=== PATIENT | female | born 1945 | race Caucasian/White ===

== ENCOUNTER 2020-11-09 10:13 | Emergency (ER) | payer MEDICARE, BC ==
--- NOTE | 2020-11-09 11:01 | EDM.PDOC ---
ED HPI GENERAL MEDICAL PROBLEM - General Chief Complaint: Gastrointestinal Problem Stated Complaint: POSSIBLE ULCER-PAIN IN ABDOMIN AND BACK Time Seen by Provider: 11/09/20 10:45 Source of Information: Reports: Patient, Family History Limitations: Reports: No Limitations - History of Present Illness INITIAL COMMENTS - FREE TEXT/NARRATIVE: 75-year-old female presents with persistent right flank pain radiating through to the upper abdomen for the past 12 hours. She tried some Rolaids but it did not help, she had difficulty getting comfortable last night. It seemed to be worsening so she came in to be seen but since she has been in the emergency room and sitting still looks much better. Mild shortness of breath with activity but nothing significantly different than her baseline. No fevers or chills, no cough, no diarrhea or dark stools. She had a "bleeding ulcer" years ago and it felt similar. Onset: Gradual (Gradual onset last evening prior to going to bed) Duration: Hour(s): (12 hours) Location: Reports: Abdomen, Back Improves with: Reports: None Worsens with: Reports: None Associated Symptoms: Reports: Malaise. 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) (Tried some Rolaids or some type of antacid without effect) - Related Data Allergies Allergy/AdvReac Type Severity Reaction Status Date / Time meperidine [From Demerol] Allergy Nausea and Verified 11/09/20 10:36 Vomiting Home Meds: Home Meds Ezetimibe [Zetia] 10 mg PO DAILY 11/09/20 [History] Levothyroxine Sodium [Synthroid] 100 mcg PO DAILY 11/09/20 [History] ursodioL [Ursodiol] 300 mg PO TID 11/09/20 [History] Past Medical History Cardiovascular History: Reports: High Cholesterol Other Genitourinary History: perf ulcers 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 Denies: Fever, Chills HEENT: Reports: No Symptoms Respiratory: Denies: Shortness of Breath Cardiovascular: Denies: Chest Pain GI/Abdominal: Reports: Abdominal Pain. Denies: Constipation, Diarrhea, Nausea, Vomiting : Reports: Flank Pain (Some pain in the right flank radiating through to the epigastric area of the abdomen) Neurological: Reports: No Symptoms Psychiatric: Reports: No Symptoms ED EXAM, GENERAL - Physical Exam Exam: See Below Exam Limited By: No Limitations General Appearance: Alert, No Apparent Distress Eye Exam: Bilateral Eye: Normal Inspection Head: Atraumatic Respiratory/Chest: No Respiratory Distress, Lungs Clear Cardiovascular: Regular Rate, Rhythm. No: Extra Beats GI/Abdominal: Soft, Non-Tender, Other (I really cannot reproduce pain with palpation of the abdomen) Back Exam: Paraspinal Tenderness (She is tender to palpation just under the right scapula, the pain feels similar but "deeper".) Extremities: Normal Inspection. No: Pedal Edema Neurological: Alert, Oriented Psychiatric: Normal Affect, Normal Mood Skin Exam: Warm, Dry Course - Vital Signs Last Recorded V/S: Last Vital Signs Temp 98.3 F 11/09/20 10:49 Pulse 54 L 11/09/20 10:49 Resp BP 136/66 11/09/20 10:49 Pulse Ox 95 11/09/20 10:49 - Orders/Labs/Meds Labs: Laboratory Tests 11/09/20 11/09/20 11/09/20 Range/Units 10:56 10:56 11:38 WBC 14.0 H (4.5-11.0) K/uL RBC 4.23 (3.30-5.50) M/uL Hgb 13.2 (12.0-15.0) g/dL Hct 40.0 (36.0-48.0) % MCV 95 (80-98) fL MCH 31 (27-31) pg MCHC 33 (32-36) % Plt Count 413 H (150-400) K/uL Neut % (Auto) 86.9 H (36-66) % Lymph % (Auto) 7.7 L (24-44) % Mck[place] % (Auto) 5.1 (2-6) % Eos % (Auto) 0.1 L (2-4) % Baso % (Auto) 0.2 (0-1) % Sodium 141 (140-148) mmol/L Potassium 4.6 (3.6-5.2) mmol/L Chloride 104 (100-108) mmol/L Carbon Dioxide 28 (21-32) mmol/L Anion Gap 9.2 (5.0-14.0) mmol/L BUN 11 (7-18) mg/dL Creatinine 1.1 H (0.6-1.0) mg/dL Est Cr Clr Drug Dosing 37.12 mL/min Estimated GFR (MDRD) 49 L (>60) Glucose 114 H (74-106) mg/dL Calcium 9.5 (8.5-10.1) mg/dL Total Bilirubin 0.5 (0.2-1.0) mg/dL AST 25 (15-37) U/L ALT 25 (12-78) U/L Alkaline Phosphatase 79 (46-116) U/L Troponin I < 0.017 (0.000-0.056) ng/mL Total Protein 7.1 (6.4-8.2) g/dL Albumin 3.3 L (3.4-5.0) g/dL Globulin 3.8 H (2.3-3.5) g/dL Albumin/Globulin Ratio 0.9 L (1.2-2.2) Lipase 137 (73-393) U/L Urine Color Yellow (YELLOW) Urine Appearance Clear (CLEAR) Urine pH 6.5 (5.0-8.0) Ur Specific [place] 1.025 (1.008-1.030) Urine Protein Negative (NEGATIVE) mg/dL Urine Glucose (UA) Negative (NEGATIVE) mg/dL Urine Ketones Negative (NEGATIVE) mg/dL Urine Occult Blood Negative (NEGATIVE) Urine Nitrite Negative (NEGATIVE) Urine Bilirubin Negative (NEGATIVE) Urine Urobilinogen 0.2 (0.2-1.0) EU/dL Ur Leukocyte Esterase Negative (NEGATIVE) Urine RBC Not seen (0-5) Urine WBC Not seen (0-5) Ur Epithelial Cells Not seen Amorphous Sediment Few Urine Bacteria Rare Urine Mucus Rare - Re-Assessments/Exams Free Text/Narrative Re-Assessment/Exam: 11/09/20 11:00 Very nonspecific symptoms, I do not think this is gallbladder related as she has not tender over the right upper quadrant. We will check CBC, CMP, lipase, troponin, UA and a two-view chest x-ray. 11/09/20 12:00 White count was mildly elevated at 14,000 but chest x-ray was normal, chemistry profile was reassuring, troponin was 0 and urine was clear. By the time the laboratory studies returned her pain had fairly much resolved. They were hoping to travel to [place] today without any further work-up and I do feel comfortable with that. Copies of her x-ray and labs were given to the patient in case she needs to be rechecked in route or when they get home. Departure - Departure Time of Disposition: 12:27 Disposition: Home, Self-Care 01 Clinical Impression: Epigastric pain, Acute right flank pain - Discharge Information Instructions: Flank Pain, Adult, [id number] Referrals: PCP,None [Primary Care Provider] - Forms: ED Department Discharge Care Plan Goals: Tylenol may help with discomfort while you are traveling home, and recheck when home if not improving satisfactorily. Stop at any time if you feel you are worsening and need to be reevaluated, take your labs and x-ray with you to any rechecks or reevaluations. Sepsis Event Note (ED) - Evaluation Sepsis Screening Result: No Definite Risk - Focused Exam Vital Signs: Vital Signs Temp Pulse BP Pulse Ox 11/09/20 10:49 98.3 F 54 L 136/66 95 11/09/20 10:34 98.3 F 54 L 136/66 95
--- NOTE | 2020-11-09 12:15 | CR ---
CHEST: 2 view CLINICAL HISTORY:Dyspnea COMPARISON:None FINDINGS: The heart size, pulmonary vascularity and hilar structures are normal. No infiltrate effusion or pneumothorax is seen. There are atherosclerotic changes in the aorta. IMPRESSION: No acute cardiopulmonary process.
== END 2020-11-09 12:27 | disposition home or self-care (01) ==
LOC: JP.ED 10:13
DX: R10.13 Epigastric pain (principal); E78.00 Pure hypercholesterolemia, unspecified; Z88.5 Allergy status to narcotic agent; Z79.899 Other long term (current) drug therapy
CPT/HCPCS: 36415; 71046; 71046-26; 80053; 81001; 83690; 84484; 85025; 99284-25